=== PATIENT | male | born 1965 | race Caucasian/White ===

== ENCOUNTER 2019-06-08 08:10 | Day surgery (SDC) | payer MEDICAID ==
[~2019-06-08] VITALS: Ht 170.2 cm; Wt 89.5 kg
[~2019-06-08 08:10] MED LIST: ADV500 IH; ALBU8HFA IH; ASPI81 PO; ATOR20TA86 PO; BENZ-51 PO; CARV6 PO; GUAIF600 PO; IPRAHFA IH; ISOS10TA16 PO; LISI-660 PO; PRED-284 PO; PRED20 PO
[2019-06-08] MEDS ORDERED: 0.9% SODIUM CHLORIDE 10 ML SYRINGE IVP PRN (08:30)
[2019-06-08] MEDS ORDERED: METOPROLOL TARTRATE 50 MG TABLET PO PRN (08:30)
[2019-06-08] MEDS ORDERED: CILO100T PO (08:41)
[2019-06-08] MEDS ORDERED: NITR0.4T50 SL (08:41)
[2019-06-08 08:56] LABS: ANION GAP 2 mmol/L (8-16); CALCIUM, TOTAL 8.2 mg/dL (8.8-10.5); CARBON DIOXIDE 34 mmol/L (22-29); CHLORIDE 105 mmol/L (98-107); GLOMERULAR FILTR. RATE CALC > 60 mL/min (>60); GLUCOSE,RANDOM 93 mg/dL (70-110); POTASSIUM 3.9 mmol/L (3.5-5.1); SODIUM SERUM 141 mmol/L (136-145); UREA NITROGEN, BLOOD 10 mg/dL (7-18)
== END 2019-06-08 10:10 | disposition home or self-care (01) ==
LOC: SURGERY 08:10 → EDSTATUS 10:30
PROVIDERS: ATTEND Internal Medicine Cardiovascular Disease
DX: I25.10 Atherosclerotic heart disease of native coronary artery without angina pectoris (principal); R10.9 Unspecified abdominal pain; I10 Essential (primary) hypertension; I25.2 Old myocardial infarction; F17.210 Nicotine dependence, cigarettes, uncomplicated; Z79.899 Other long term (current) drug therapy; Z98.890 Other specified postprocedural states; Z53.8 Procedure and treatment not carried out for other reasons
CPT/HCPCS: 93005